=== PATIENT | female | born 2000 | race Caucasian/White ===

== ENCOUNTER 2021-02-24 18:05 | Inpatient (IN) | payer OTHER ==
[~2021-02-24] VITALS: Ht 162.6 cm; Wt 68.7 kg
--- NOTE | ~2021-02-24 | EEG ---
[facility] [place] [address] ELECTROENCEPHALOGRAM Name: DAVEY GARZA Room #: 441-P [facility] IN M.R.#: [id number] Admission: 02/25/21 Attend Phys: Harry Zimmerman Discharge: Date of : 99 Report #: [id number] THIS REPORT FOR: //name// DATE OF SERVICE: 02/27/2021 This patient is being evaluated for the possibility of seizure. EEG was done by pacing the electrode by standard 10-20 system of electrode placement. Both referential and sequential montages were used for recording. Background activity in this patient's EEG is about 10 Hz and 30 microvolt. The patient became drowsy and that is associated with bilateral slowing and vertex sharp waves. Throughout the record, no active epileptiform activity was noticed. IMPRESSION: This patient's EEG is within normal limits. Thank you very much for this referral. By: [id number] Pedro García MD /nt
--- NOTE | ~2021-02-24 | HC ---
[facility] [address] [address] CONSULTATION Name: DAVEY GARZA Room #: [facility] IN M.R.#: [id number] Admission: 02/25/21 Attend Phys: Harry Zimmerman, Discharge: Date of : 99 Report #: [id number] THIS REPORT FOR: cc: FAM - No family physician/PCP FAM - No family physician/PCP Pedro García MD ~ DATE OF SERVICE: 02/26/2021 HISTORY OF PRESENT ILLNESS: This is a 20-year-old female patient who was evaluated by me for the possibility of seizure. This patient gives a history that she was in high school. 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 She had a panic attack and she had a seizure. Rest of the history she gives is different than what she has given to other people. To me, she tells me that she has only one panic attack. She has variable amount of seizure, but she can have up to four seizures in a month. She described that she lose the focus during those episodes. She has not had a seizure where she bit her tongue or lost control over the urine. Whether stress aggravate that or not is not clear. REVIEW OF SYSTEMS: A 14-point review of system was carried out. She has this poorly-defined history of seizure. She has history of anxiety. She takes some solt-jev-ylwrvmg supplement for that. She does not take any prescription medicine for that. Otherwise, she says she is pretty healthy. In fact, she does not take any prescription medication. Description of her seizure is in the hospitalist note and that was reviewed. The patient's blood sugar apparently was 64 at that time and she was fully conscious during that time. This was a relevant 14-point review of system. PAST MEDICAL HISTORY: Positive for panic attacks, but history she provides me is different and summarized above. FAMILY HISTORY: Unremarkable. SOCIAL HISTORY: She takes some supplement, but does not drink any alcohol or smoke. PHYSICAL EXAMINATION: She is alert. She is responsive. She can follow simple commands. Her speech looks intact. Cranial nerve examination, I had a difficult time doing the visual field evaluation, but otherwise appear mostly unremarkable. She moves all 4 extremities, but when I do the position sense, she does it poorly and when I do the touch, she does okay, I can tell about plantars. There is no meningeal sign. There is no carotid bruit in this patient. Cardiac examination is unremarkable. Blood pressure is 131/72, respirations 18, pulse is 119 and her pulse has been variable. It has gone as high as 144 at one time. There is no edema, cyanosis or jaundice. Her temperature is 98.2. She did have a CT scan of the head and that was basically unremarkable. [facility] [address] [place] [address] CONSULTATION Name: DAVEY GARZA Room #: 441-P [facility] IN M.R.#: [id number] Admission: 02/25/21 Attend Phys: Harry Zimmerman, Discharge: Date of : 99 Report #: [id number] IMPRESSION AND PLAN: Pretty difficult to tell in this patient as she never had any workup before. She does have anxiety. She does have panic attack and the question is how many of these are epileptic seizures and how many of them are nonepileptic seizures. I discussed with the patient that I will get an EEG done. If EEG shows epilepsy, then we need to treat accordingly, but the problem is EEG is negative in a significant percentage of epileptic patients. They need a video monitored EEG. Since this problem is going on for a long time, I will suggest that she get an appointment with an epileptologist as soon as she is dismissed and they can consider video monitored EEG. This is assuming if the EEG is normal. She did have some minor abnormality like minimally decreased blood sugar and she does have some tachycardia. That is being addressed by the plumbing drafter. I will check a magnesium level and thyroid function test in this patient, which I ordered. I will await an EEG and leave any further recommendations I may have. Looks like hospitalist is going to put a psychiatric consult and we will see what they say. Thank you very much for this referral. By: [id number] Pedro García MD /nt
[2021-02-24 18:08] VITALS: BP 122/82
[2021-02-24 18:49] LABS: URINE BILIRUBIN NEGATIVE (Negative); URINE BLOOD 3+ (Negative); URINE CLARITY CLOUDY; URINE COLOR YELLOW; URINE GLUCOSE-RANDOM* NEGATIVE (Negative); URINE KETONES 1+ (Negative); URINE NITRITE-REFLEX NEGATIVE (Negative); URINE PROTEIN (DIPSTICK) NEGATIVE (Negative); URINE SPECIFIC GRAVITY 1.025 (1.005-1.035); URINE UROBILINOGEN 0.2 E.U./dl (0.2-1.0)
[2021-02-24 18:51] LABS: URINE LEUKOCYTES-REFLEX 1+ (Negative)
[2021-02-24 19:14] LABS: CASTS None Seen /LPF (None Seen); CRYSTALS None Seen /LPF (None Seen); MUCUS >6 Heavy strn/LPF (None Seen); SQUAMOUS 4-10 Moderate /LPF (0-3); URINE WBC-REFLEX 6-15 Few /HPF (0-5)
[2021-02-24 20:22] LABS: ABSOLUTE NEUTROPHILS 6.8 thou/uL (1.4-8.2); BASOPHILS 0.3 % (0.0-2.0); EOSINOPHILS 0.4 % (0.0-3.0); HEMATOCRIT 39.7 % (37.0-47.0); HEMOGLOBIN 12.8 gm/dL (12.0-15.0); LYMPHOCYTES 24.8 % (24.0-44.0); MCH 27.8 pg (26.0-34.0); MCHC 32.3 g/dL (28.0-37.0); MCV 85.9 fL (80.0-100.0); MONOCYTES 5.9 % (1.0-8.0); PLATELET COUNT 376 thou/uL (150-400); POLYS 68.6 % (36.0-66.0); RBC 4.62 mil/uL (4.20-5.00); RDW 14.3 % (10.5-14.5); WBC 9.9 thou/uL (4.0-11.0)
[2021-02-24 20:29] LABS: CALCIUM 9.2 mg/dL (8.5-10.1); CREATININE 0.9 mg/dL (0.6-1.0); POTASSIUM 3.8 mmol/L (3.5-5.1)
[2021-02-25 08:55] VITALS: BP 121/72
[2021-02-25 15:42] VITALS: BP 124/91
--- NOTE | 2021-02-25 16:24 | NUR ---
ASSUMED PT CARE FROM PACU AT 1520. PT HAD LAP APPENDECTOMY TODAY. PT IS ALERT & ORIENTED X4. PT HAS IV SITE ON R AC 20 GAUGE. PT HAS 4 LAP SITES WITH DERMABOND/STERI STRIPS AND ICE PACK. PT C/O OF PAIN AND GIVEN PAIN MEDICATION PER PT REQUEST. FINISHED ADMISSION. PT FRIEND AT THE BEDSIDE. WILL CONTINUE TO MONITOR PT. FOLLOW POC.
[2021-02-25 19:11] VITALS: BP 122/83
--- NOTE | 2021-02-26 05:00 | NUR ---
PT IS A/O X4 AND IS UP AD LIZ. ROOM AIR. VSS. AFEBRILE. C/O ABDOMINAL PAIN. PRN PAIN MEDICATION GIVEN DIRECTED. LAPSITES C/D/I. C/O URINE RETENTION, PAIN WHILE URINATING AND LARGER THAN USUAL BLOOD CLOTS DURING HER MONTHLY CYCLE. BLADDER SCANNED PT AND THERE IS 312 IN THE BLADDER. CALLED [facility] TO SPEAK TO BRANDY ZAVALA. AWAITING CALL BACK AT THIS TIME. PT COMPLAINS OF SHAKING ALTHOUGH NOT FEELING COLD. WILL EDORSE THIS TO PERAN WHEN THERE IS A RETURN CALL. FALL PRECAUTIONS AND SCD'S IN PLACE, CALL LIGHT IS WITHIN REACH.
[2021-02-26 08:46] VITALS: BP 123/78
--- NOTE | 2021-02-26 10:10 | NUR ---
ASSUMED PT CARE THIS AM. PT IS ALERT & ORIENTED X4. PT HAS IV SITE ON RAC RUNNING NS @100ML/HR. PT HAS 4 LAP SITES WITH DERMABOND/STERI STRIPS. INFORMED DR THAT PT VOMITED THIS AM. NIGHT NURSE GIVEN MEDS AND WARM BLANKET. DID BLADDER SCAN THIS AM IT WAS >361ML. DID STRAIGHT CATH WITH 400ML OUTPUT. PT IS UP AD LIZ. WILL CONTINUE TO MONITOR PT. FOLLOW POC.
[2021-02-26 10:22] LABS: HEMATOCRIT 36.2 % (37.0-47.0); HEMOGLOBIN 11.8 gm/dL (12.0-15.0); MCHC 32.5 g/dL (28.0-37.0); MCV 86.3 fL (80.0-100.0); RBC 4.2 mil/uL (4.20-5.00); RDW 14.2 % (10.5-14.5); WBC 8.8 thou/uL (4.0-11.0)
--- NOTE | 2021-02-26 11:12 | NUR ---
ASSESSMENT: CM REVIEWED CHART AND SPOKE WITH PT AT THE BEDSIDE. PT IS ALERT AND ORIENTED X4. PT IS S/P LAP APPE. PT REPORTS SHE LIVES WITH A ROOMATE. PT REPORTS BEING FULLY INDEPENDENT WITH ADLS AND AMBULATION. PT REPORTS THAT TODAY HER INSURANCE SHOULD BE ACTIVE AND STATES SHE HAS AM BETTER PLAN IN [place]. CM NOTIFIED UR RN TO NOTIFY AND VERIFY. PT REPORTS NOT HAVING A PCP AND CM SUGGESTED THAT PT CONTACT THE NUMBER ON THE BACK OF HER CARD TO FIND OUT WHO IS IN NETWORK. CM ALSO PROVIDED PATIENT WITH SAFETY NET CLINIS, HEALTH RESOURCE PACKET, FIND A PHYSICIAN FORM. PT DOES NOT ANTICIPATE HAVING ANY NEEDS FROM CM. CM WILL CONTINUE TO FOLLOW TO ASSIST NEEDED.
[2021-02-26 12:56] VITALS: BP 123/78
[2021-02-26 14:06] VITALS: BP 153/98
[2021-02-26 19:00] VITALS: BP 131/72
--- NOTE | 2021-02-27 03:25 | NUR ---
ASSESSED AT START OF SHIFT, PT C/O ABD PAIN. MANAGED BY PO AND IV PAIN MEDS. ZOFRAN GIVEN FOR NAUSEA. NO EMESIS NOTED. HR TACHY ON THE MONITOR. ONCALL PRODUCTION ENGINE REPAIRER ORDERED SOME FLIUDS AND ONE TIME DILAUDID GIVEN FOR PAIN. DR CAVANAUGH STOPPED BY TO SEE PT. ORDERED EEG IN THE MORNING. FOLLEY INTACT TO D/D. HEATING PAD PLACED FOR COMFORT. CALL LIGHT AT REACH AND WILL CONT TO MONITOR.
[2021-02-27 04:05] VITALS: BP 110/65
[2021-02-27 06:15] LABS: HEMATOCRIT 31.9 % (37.0-47.0); HEMOGLOBIN 10.9 gm/dL (12.0-15.0); MCH 29.4 pg (26.0-34.0); MCHC 34.2 g/dL (28.0-37.0); MCV 85.9 fL (80.0-100.0); RBC 3.71 mil/uL (4.20-5.00); RDW 13.9 % (10.5-14.5); WBC 6.6 thou/uL (4.0-11.0)
[2021-02-27 06:35] LABS: CALCIUM 8.2 mg/dL (8.5-10.1); CREATININE 0.7 mg/dL (0.6-1.0); POTASSIUM 3.7 mmol/L (3.5-5.1)
[2021-02-27 07:06] VITALS: BP 112/73
--- NOTE | 2021-02-27 11:42 | NUR ---
A/O X 4. Room air. AD LIZ-steady gait. Very naueous 0800, nurse gave PO zofran first and patient threw up, then IV zofran given and it helped her nausea. 4 lap sites on abd covered with steri strips. Right forearm IV with NS infusing @ 100 mls/hr. Garcia in place for retention- light yellow, no sediment noted. On tele SR/ST with activity, EEG completed. abd PAIN 7/10 MORPHINE given for pain. Her friend came to visit and is at bed side. Currently sleeping.
--- NOTE | 2021-02-27 13:08 | PATH ---
[facility] [address] [place] [address] PATHOLOGY RPT PROCEDURE Name: DAVEY GARZA Room #: 441-P ADM IN M.R.#: [id number] Admission: 02/25/21 Date of : 99 Discharge: Report #: [id number] Path Case #: [id number] [facility] Accession Number: [id number] . 01 Material submitted: . appendix - APPENDIX . 01 Clinical history: . APPENDICITIS . 02 Diagnosis: Appendix, appendectomy: - Mild chronic inflammation. - Markedly dilated appendiceal lumen. (IUV/db; 02/26/2021) LBQ 02/26/2021 1412 Local . 02 Electronically signed: . Ciarra Coon MD, Pathologist NPI- [id number] . 01 Gross description: . Fixative: Formalin Labeled: Appendix Appendix length: 7.2 cm Appendix diameter: 1.1 cm Mesoappendix: 1.2 cm Proximal margin: Stapled Serosa: [place] with mild vasculature Cut surface: Patient to dilated Luminal diameter: Up to 1.0 cm Perforation: None identified Lesions/abnormalities: None identified . Proximal margin and bisected tip in cassette A1. Additional personnel representative cross-sections in cassette A2. ([facility]; 02/25/2021) NRI/NRI 02/25/2021 1747 Local . 02 Pathologist provided ICD-10: K35.80 . 02 CPT . 728027 Specimen Comment: A courtesy copy of this report has been sent to [phone] Specimen Comment: Report sent to Specimen Comment: A duplicate report has been generated due to demographic [address] [address] PATHOLOGY RPT PROCEDURE Name: GREGDAVEY Room #: 441-P ADM IN M.R.#: [id number] Admission: 02/25/21 Date of : 99 Discharge: Report #: [id number] Path Case #: [id number] updates. Performed at: 01 [facility] [address], [place] [id number] MD Brody Mason MD Phone: [phone] Performed at: [address] [id number] MD Ciarra Coon MD Phone: [phone]
--- NOTE | 2021-02-27 13:08 | NUR ---
ON-GOING ASSESSMENT: CM REVIEWED CHART. EEG WAS ORDERED AND COMPLETED. NEUROLOGY CONSULT PLACE. PT CONTINUES TO HAVE FOWLEY DUE TO URINARY RETENTION. PT SHOWING PATIENT PAY BUT REPORTS STARTING YESTERDAY 02/26 SHE WAS TO START HAVING COVERAGE THROUGH [employer] (UR RN WAS NOTIFIED YESTERDAY). PT IS HOPEFUL TO HAVE NO NEEDS AT DISCHARGE. CM PREVIOUSLY GAVE PATIENT OUTPT RESOURCES (HEALTH RESOURCE PACKET, SAFETY NET CLINICS) IF NEEDED. CM WILL CONTINUE TO FOLLOW.
[2021-02-27 13:59] LABS: AMP/METHAMP Negative (Negative); BARBITURATES Negative (Negative); BENZODIAZEPINES Negative (Negative); COCAINE Negative (Negative); METHADONE Negative (Negative); OPIATES POSITIVE (Negative); PCP Negative (Negative)
[2021-02-27 15:46] VITALS: BP 115/73
[2021-02-27 20:27] VITALS: BP 122/75
--- NOTE | 2021-02-28 04:37 | NUR ---
PT C/O RIGHT HIP PAIN.GIVEN PAIN MEDS AND ASSITED TO REPOSITION. USING HEATING PAD TO ABDOMEN. LAP SITES LOOK OKAY. PT REPORTS PASSING FLATUS AND HAVING BM X 2 . STILL C/O NAUSEA.HOFFMAN TO D/D WITH ADEQUATE U/O. NO SEIZURE LIKE ACTIVITY THIS SHIFT. PT HOWEVER IS EXTREMELY ANXIOUS ABOUT ALOT OF THINGS GOING ON IN HER LIFE. SHE GETS TACHYCARDIC AND TEARFUL WHEN TALKING ABOUT HER MULTIPLE PROBLEMS. PRN LORAZEPAM GIVEN X1 WITH EFFECTIVENESS.
[2021-02-28 05:48] VITALS: BP 116/72
[2021-02-28 07:10] VITALS: BP 112/64
--- NOTE | 2021-02-28 13:06 | NUR ---
MICHA reviewed chart and spoke with attending physician. Pt remains on IV abx. Drug screen collected. Pt positive for THC. Neuro consulted due to lower extremity weakness. MRI of lumbar spine ordered. PT eval also ordered. Pt has been provided with info for safety net clinics, should she be ready for discharge over the weekend. MICHA is following to assist as needed with discharge planning.
[2021-02-28 15:32] VITALS: BP 120/85
--- NOTE | 2021-02-28 18:30 | NUR ---
PT ASSESSED AT START OF SHIFT. PT CONTINUES TO HAVE NAUSEA, VOMITING, ABD PAIN AND RT LUMBAR AND LEG PAIN. MEDICATED W/ PRN'S NEEDED. EMESIS BECAME RUST COLORED THIS AFTERNOON AND DR. DELGADO NOTIFIED. ORDERS TO START IVP PROTONIX BID. PT STATED IT HELPED SOME. MRI DONE THIS AM. CONTINOUES TO HAVE ANXIETY AT TIMES AND HEART RATE HAS BEEN TACHY ALL THIS MOSTLY ONE TWENTIES.
[2021-02-28 20:48] VITALS: BP 135/75
--- NOTE | 2021-03-01 02:12 | NUR ---
PT IS A/O X4 AND IS UP WITH SBA DUE TO RIGHT HIP/LOWER BACK PAIN. NORMALLY UP AD LIZ WITHOUT ASSISTANCE BUT PAIN IS TOO GREAT TO WALK WITHOUT ASSISTANCE. PT IS ON ROOM AIR. ST/PVC ON THE MONITOR. RESTING HR WHILE SLEEPING HAS BEEN FLUCTUATING BETWEEN 90'S-100'S. WHILE AWAKE EARLIER IN THE NIGHT PT RESTING HR WAS IN THE 120'S. WITH ANY TYPE OF EXERTION PT HR WAS SEEN THE HIGHEST IN THE 170'S. PT C/O ANXIETY AND APPEARS ANXIOUS WITHIN SHALLOW BREATHING AT TIMES. PT APPEARED PALE AND LESS ALERT THAN NORMAL. UPON CHECK OF BS IT WAS 62. DR DELGADO NOTIFIED AND ORDERS GIVEN TO INTIATE PT ON ACHS PROTOCOL. BS TREATED APPROPRIATELY PER PROTOCOL. PT EXPERIENCED TWO EPISODES OF VOMITING. PRN ZOFRAN GIVEN DIRECTED. PT C/O PAIN TO RIGHT HIP AND LOWER BACK. PAIN MEDICATION GIVEN DIRECTED.
[2021-03-01 07:10] VITALS: BP 122/74
--- NOTE | 2021-03-01 10:18 | NUR ---
ASSUMED PT CARE THIS AM. PT IS ALERT & ORIENTED X4. PT HAS IV SITE ON R UA SALINE LOCKED. PT HAS TELE MONITOR ON. PT IS ACCUCHECK ACHS. PT C/O OF PAIN AND GIVEN PAIN MEDICATION PER PT REQUEST. CALLED GI CONSULT THIS AM. PT IS CURRENTLY HAVING EGD. WILL CONTINUE TO MONITOR PT. FOLLOW POC.
--- NOTE | 2021-03-01 12:22 | HC ---
[facility] [place] [address] CONSULTATION Name: DAVEY GARZA Room #: 441-P ADM IN M.R.#: [id number] Admission: 02/25/21 Attend Phys: Harry Zimmerman, Discharge: Date of : 99 Report #: [id number] THIS REPORT FOR: cc: FAM - No family physician/PCP FAM - No family physician/PCP Ramin Rendon MD ~ cc: Harry Zimmerman MD, Ever Carl MD DATE OF SERVICE: 03/01/2021 HISTORY OF PRESENT ILLNESS: The patient is a 20-year-old female, who was admitted to the Emergency Room on 02/24/2021 with right lower quadrant abdominal pain. The CT scan of the abdomen and pelvis was performed on 02/24/2021 showing enlargement of the appendix up to 10 mm with thickening and high density noted throughout the majority of the appendix, early appendicitis could have this appearance. She was evaluated by Dr. Zimmerman and the patient underwent laparoscopic appendectomy on 02/25/2021. Postoperatively, the patient has had recurrent nausea, vomiting, reportedly coffee-ground type emesis. She does report some mild heartburn symptoms, odynophagia at times, mild dysphagia at times, does not take any antacids at home. Her hemoglobin was 12.8 on admission and is 10.9 at this time. She has been on Lovenox. She was started on Protonix yesterday evening 40 b.i.d. She is on Zofran on a p.r.n. basis. The patient also has a history of seizures. She developed urinary retention postop and required a Garcia catheter placement. The patient also complained of back pain during this hospital stay. She has undergone an MRI of her lumbar spine. She has a history of anxiety. PAST MEDICAL HISTORY: Anxiety, recent appendicitis, status post appendectomy. ALLERGIES: No known drug allergies REVIEW OF SYSTEMS: As per HPI. SOCIAL HISTORY: She does consume alcohol occasionally and denies any tobacco use. FAMILY HISTORY: Negative for colon cancer or inflammatory bowel disease. CURRENT MEDICATIONS: Lidocaine patch transdermal, Lovenox, which has been held, melatonin, Protonix 40 b.i.d. MiraLax, senna, clonazepam, Zofran p.r.n., lorazepam p.r.n., Rocephin, tamsulosin, and hydrocodone p.r.n. PHYSICAL EXAMINATION: VITAL SIGNS: Temperature is 36.1, blood pressure is 122/74, pulse 115, respiratory rate is 18. GENERAL: She is alert and oriented x3, [place] [address] CONSULTATION Name: DAVEY GARZA Room #: 441-P [facility] IN M.R.#: [id number] Admission: 02/25/21 Attend Phys: Harry Zimmerman, Discharge: Date of : 99 Report #: [id number] HEENT: Sclerae nonicteric. Oropharynx clear. NECK: Supple, without lymphadenopathy. CARDIAC: Regular rate and rhythm. CHEST: Clear to auscultation anteriorly bilaterally. ABDOMEN: Soft. Previous incisions with some mild ecchymosis, but clean, dry and intact, nondistended, minimally tender. EXTREMITIES: No cyanosis, clubbing or edema. LABORATORY DATA: WBC is 6.6, hemoglobin 10.9, platelet count is 295. Electrolytes on 02/27/2021, sodium 139, potassium 3.7, chloride 108, bicarbonate 20, BUN 5, creatinine 0.7, glucose 102, and calcium 8.2. IMAGING: CT scan of the head normal. Lumbar MRI, mild to moderate degenerative facet arthrosis in the L3-L4 through L5-S1. No significant disk bulge identified. No significant stenosis. ASSESSMENT AND PLAN: Nausea, vomiting, coffee-ground type emesis, drop in hemoglobin since admission. Would recommend proceeding with an upper endoscopy for further evaluation. The patient understands and agrees with this plan. Agree with PPI therapy. We will make further recommendations after endoscopy. Thank you for allowing me to participate in her care. <ELECTRONICALLY SIGNED> By: Ramin Rendon MD 03/01/21 1222 1011 1054 Ramin Rendon MD /nt
--- NOTE | 2021-03-01 12:22 | P ---
[facility] [place] [address] [address] PROCEDURE REPORT Name: DAVEY GARZA Room #: 441-P [facility] IN M.R.#: [id number] Admission: 02/25/21 Attend Phys: Harry Zimmerman, Discharge: Date of : 99 Report #: [id number] THIS REPORT FOR: cc: FAM - No family physician/PCP FAM - No family physician/PCP Ramin Rendon MD ~ cc: Harry Zimmerman MD DATE OF SERVICE: 03/01/2021 PROCEDURE PERFORMED: Upper endoscopy with biopsies. HISTORY OF PRESENT ILLNESS: The patient is a 20-year-old female who presented with abdominal pain, diagnosed with appendicitis, status post laparoscopic appendectomy. Postop day #3, she has been having nausea, vomiting with coffee-ground type emesis. She had a mild drop in her hemoglobin. She was started on PPI therapy yesterday. Plan is for upper endoscopy. DESCRIPTION OF PROCEDURE: The risks and benefits of the procedure were explained to the patient, those risks including but not limited to bleeding, perforation and the risk of sedation. She understood these risks and gave informed consent. Sedation was given using propofol per anesthesia. Next, using a standard Olympus upper endoscope, the scope was placed in the patient's mouth and advanced under direct vision through the esophagus, stomach and into the second portion of the duodenum. The larynx was normal in appearance. The upper and mid esophagus was normal. In the distal esophagus, a possible short segment of Garcia's was noted. Biopsies were obtained. Mild grade A erosive esophagitis was seen in the stomach and mild gastritis was noted. Biopsies were obtained to rule out H. pylori. There was no evidence of ulcerations or active bleeding, no evidence of blood throughout the exam today. The pylorus was normal and patent. The duodenal bulb, first and second portion were all normal. The scope was then withdrawn and the procedure terminated. The patient tolerated the procedure well. IMPRESSION: 1. Mild grade A erosive esophagitis. 2. 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 3. Mild gastritis. 4. No evidence of bleeding today. RECOMMENDATIONS: 1. We will start clear liquid diet and advance as tolerated. 2. Continue Zofran p.r.n. and PPI therapy at this time. [address] [address] PROCEDURE REPORT Name: DAVEY GARZA Room #: 441-P [facility] IN M.R.#: [id number] Admission: 02/25/21 Attend Phys: Harry Zimmerman, Discharge: Date of : 99 Report #: [id number] Thank you for allowing me to participate in her care. <ELECTRONICALLY SIGNED> By: Ramin Rendon MD 03/01/21 1222 1014 1053 Ramin Rendon MD /nt
[2021-03-01 16:37] VITALS: BP 122/64
[2021-03-01 19:30] VITALS: BP 111/78
--- NOTE | 2021-03-01 22:05 | NUR ---
PT IS HERE CRYING . C/O PAIN TO R HIP AND STOMACH. GIVEN PO ZOFRAN AND SHE THREW UP. I WILL GIVE HER IV ZOFRAN AND LORAZEPAM, SHE IS EXTREMELY TACHY AND CANT SEEM TO RELAX. SHE IS REFUSING THE PO CLONAZEPAM.
[2021-03-02 03:00] VITALS: BP 116/78
--- NOTE | 2021-03-02 03:08 | NUR ---
ASSSUMED CARE OF PT AT 1900. BEDSIDE REPORT RECIEVED. AMARILIS ASSESSMENT COMPLETE. PT CONTINUING TO C/O NAUSEA AND VOMITTING AND UNCTROLED PAIN. PT CONTINUES TO BE ON AND OFF TEARFUL. THERAPUTIC SUPPORT AND COMMUNICATION PROVIDED. THIS NUSRE HAS NOT WITNESSED PT THROW UP. PT REFUSED SCHEDULED CLONAZEPAM AND WAS REFUSING PAIN PO MEDICINE. SHARLENE JONES SANITARY AIDE NOTIFIED. NO NEW ORDERS AT THIS TIME. PROVIDED EDUCATION TO PT ON MEDICATIONS. PT C/O DIZZINESS, BS CHECKED, 87. PRN MELATONIN GIVEN. PT TOELRATED. ALL NEEDS MET. CALL LIGHT IN REACH.
[2021-03-02 07:22] VITALS: BP 107/66
[2021-03-02 13:04] LABS: AMP/METHAMP Negative (Negative); BARBITURATES Negative (Negative); BENZODIAZEPINES POSITIVE (Negative); COCAINE Negative (Negative); METHADONE Negative (Negative); OPIATES POSITIVE (Negative); PCP Negative (Negative)
[2021-03-02] MEDS ORDERED: NORCO5 PO (14:15)
[2021-03-02] MEDS ORDERED: OMEPRAZOLE10 MG PO (14:17)
--- NOTE | 2021-03-02 14:43 | NUR ---
ASSUMED PT CARE THIS AM. PT IS ALERT & ORIENTED X4. REMOVED HOFFMAN AND IV THIS AM. PT ABLE TO VOID. PT IS ON TELE MONITOR ON. PT IS ON ROOM AIR. PT C/O OF PAIN, NAUSEA AND VOMITING. GIVEN MEDICATION PER PT REQUEST. EDUCATED AND INFORMED DC ORDERS. GIVEN PRESCRIPTIONS. WHEEL PT DOWN. PT DC TODAY.
--- NOTE | 2021-03-02 18:23 | O ---
[facility] [place] [address] [address] [place] [address] OPERATIVE REPORT Name: DAVEY GARZA Room #: 441-P [facility] IN M.R.#: [id number] Admission: 02/25/21 Attend Phys: Harry Zimmerman, Discharge: 03/02/21 Date of : 99 Report #: [id number] THIS REPORT FOR: cc: FAM - No family physician/PCP FAM - No family physician/PCP Harry Zimmerman MD ~ DATE OF SERVICE: 02/25/2021 PREOPERATIVE DIAGNOSIS: Acute appendicitis. POSTOPERATIVE DIAGNOSIS: Acute appendicitis. OPERATION: Laparoscopic appendectomy. SURGEON: Harry Zimmerman MD ANESTHESIA: General. ESTIMATED BLOOD LOSS: Minimal. SPECIMENS: Appendix. DESCRIPTION OF PROCEDURE: After informed consent was obtained, the patient was brought to the operating room and placed supine. SCDs were placed and working, preoperative antibiotics were administered, general anesthesia was induced. The abdomen was prepped and draped in the usual sterile fashion. A 10-mm incision was made below the umbilicus. Fascia was incised and a trocar was placed. Pneumoperitoneum was established. Right upper quadrant and left lower quadrant 5 mm ports were placed. The appendix was grasped and retracted anteriorly. A window was made in the mesoappendix. The mesoappendix was ligated with two fires of the INO polo-load stapler. I then ligated the base of the appendix with a INO blue-load stapler. Appendix was placed into an Endopouch and removed. Fascia at the umbilicus was closed with a gltmxj-[id number]-[id number] 0 Vicryl. Skin was closed with 4-0 Monocryl. Incisions were dressed with Steri-Strips. COMPLICATIONS: None. DISPOSITION: The patient was taken to recovery in satisfactory condition. <ELECTRONICALLY SIGNED> By: Harry Zimmerman MD 03/02/21 1823 1001 1042 Harry Zimmerman MD /nt
== END 2021-03-02 14:54 | disposition home or self-care (01) | DRG 342 ==
LOC: ER 18:05 → EROBS 02-25 00:45 → TBA 02-25 09:09 → 4S 02-25 15:14
PROVIDERS: Emergency Medicine; Hospitalist; Nurse Practitioner Family; ADMIT Surgery; ATTEND Surgery
PROC: 0DTJ4ZZ Resection of Appendix, Percutaneous Endoscopic Approach (ICD-10-PCS; principal; 2021-02-25)
PROC: 0DB38ZX Excision of Lower Esophagus, Via Natural or Artificial Opening Endoscopic, Diagnostic (ICD-10-PCS; 2021-03-01)
PROC: 0DB68ZX Excision of Stomach, Via Natural or Artificial Opening Endoscopic, Diagnostic (ICD-10-PCS; 2021-03-01)
DX: K35.80 Unspecified acute appendicitis (principal); R71.0 Precipitous drop in hematocrit; N39.0 Urinary tract infection, site not specified; R31.9 Hematuria, unspecified; B95.2 Enterococcus as the cause of diseases classified elsewhere; K20.80 Other esophagitis without bleeding; R33.9 Retention of urine, unspecified; K29.70 Gastritis, unspecified, without bleeding; M25.551 Pain in right hip; M47.816 Spondylosis without myelopathy or radiculopathy, lumbar region; G40.909 Epilepsy, unspecified, not intractable, without status epilepticus; K22.70 Barrett's esophagus without dysplasia; F41.0 Panic disorder [episodic paroxysmal anxiety]; F12.10 Cannabis abuse, uncomplicated; F41.9 Anxiety disorder, unspecified; Z20.822 Contact with and (suspected) exposure to COVID-19; Z90.49 Acquired absence of other specified parts of digestive tract; Z82.49 Family history of ischemic heart disease and other diseases of the circulatory system; Z83.3 Family history of diabetes mellitus
CPT/HCPCS: 10100; 10195; 50010; 50101; 50411; 50555; 50739; 50740; 51489; 52265; 52266; 53307; 53312; 53314; 55245; 56525; 56526; 58574; 58867; 62110; 62900; 70005